=== PATIENT | female | born 1990 | race Caucasian/White ===

== ENCOUNTER 2017-01-10 13:26 | Emergency (ER) | payer SELFPAY ==
[~2017-01-10] VITALS: Ht 167.6 cm; Wt 65.8 kg
[2017-01-10] MEDS ORDERED: ACETAMINOPHEN ES 500 MG TABLET ONE (14:12)
[2017-01-10] MEDS ORDERED: ACETAMINOPHEN 325 MG TABLET PO ONE (14:30)
[2017-01-10 15:31] VITALS: BP 128/72
== END 2017-01-10 15:32 | disposition home or self-care (01) ==
LOC: ER 13:28
DX: S13.9XXA Sprain of joints and ligaments of unspecified parts of neck, initial encounter (principal); M53.3 Sacrococcygeal disorders, not elsewhere classified; M54.5 Low back pain; V49.49XA Driver injured in collision with other motor vehicles in traffic accident, initial encounter; Y93.89 Activity, other specified; Y92.89 Other specified places as the place of occurrence of the external cause; Y99.9 Unspecified external cause status
CPT/HCPCS: 72040; 99284; A4606 ×2; Z7610 ×2